=== PATIENT | male | born 1945 | race Caucasian/White ===

== ENCOUNTER 2017-08-07 03:01 | Inpatient (IN) | payer MEDICARE, MEDICAID ==
[~2017-08-07] VITALS: Ht 182.9 cm; Wt 96.7 kg
[2017-08-07 04:46] VITALS: BP 121/83; PULSE 94; RESP 22; TEMP 97.7; O2SAT 97
[2017-08-07] MEDS ORDERED: MAGNESIUM HYDROXIDE SUSP 30 ML CUP PO PRN (05:30)
[2017-08-07] MEDS ORDERED: ALUMINUM/MAGNESIUM/SIMETH 30 ML CUP PO PRN (05:30)
[2017-08-07] MEDS ORDERED: AMLO2.5T PO (09:16)
[2017-08-07] MEDS ORDERED: VENTAER INH (09:16)
[2017-08-07] MEDS ORDERED: TRAZ100T10 PO (09:16)
[2017-08-07] MEDS ORDERED: DEPA500T3 PO (09:16)
[2017-08-07] MEDS ORDERED: VENL75TA (09:16)
[2017-08-07] MEDS ORDERED: INVE6TAB3 PO (09:16)
[2017-08-07] MEDS: ACETAMINOPHEN 325 MG TAB PO PRN ×2 (12:15→20:17)
[2017-08-07] MEDS ORDERED: hydrOXYzine HCL 50 MG TAB PO PRN (13:45)
[2017-08-07] MEDS ORDERED: ALBUTEROL SULFATE 90 MCG/ACT HFA 8 GM INHALER INH PRN (13:45)
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
[2017-08-07] MEDS ORDERED: PILL SPLITTER OTHER PRN (14:45)
--- NOTE | 2017-08-07 16:33 | PD.CONS ---
HPI Service [facility] Hospitalists Consult Requested By Dr. Montiel Reason for Consult Medical management Primary Care Physician Unknown Diagnoses: (1) Hypertension History of Present Illness The patient is a 72-year-old male seen in inpatient psychiatry day room. Hospitalist consult requested for medical management. The patient states that he has "too much metal" in his blood. He reports that his blood is full of amalgam, cyanide, arsenic, lead. No other complaints at this time. Review of Systems ROS Limitations: Psychotic Constitutional: DENIES: Fever, Chills, Night Sweats Eyes: DENIES: Blurred vision, Vision loss Ears, nose, mouth, throat: DENIES: Hearing loss Respiratory: DENIES: Cough, Wheezing, Sputum production, Shortness of breath Cardiovascular: DENIES: Chest pain, Palpitations, Dyspnea on Exertion, Lower Extremity Edema Gastrointestinal: DENIES: Abdominal pain, Constipation, Diarrhea, Nausea, Vomiting Genitourinary: DENIES: Urinary frequency, Urinary incontinence, Urgency, Hematuria, Dysuria, Nocturia Musculoskeletal: DENIES: Joint pain, Muscle aches Integumentary: DENIES: Pruritus, Rash Hematologic/lymphatic: DENIES: Bruising Neurologic: DENIES: Headache Past Family Social History Allergies: Coded Allergies: No Known Allergies (Verified Allergy, Unknown, 08/07/17) Past Medical History Hypertension Past Surgical History Patient does not report any history of surgeries Reported Medications Medication llist from [facility]: Albuterol 18 GM Inh (Ventolin Hfa 18 GM Inh) 90 Mcg/Act Aer, 2 PUFF INH Q4-6H Y for SHORTNESS OF BREATH, #1 INHALER 0 Refills 08/07/17 Paliperidone ER (Invega) 6 Mg Tab, 6 MG PO HS for Schizophrenia, #30 TAB 0 Refills 08/07/17 Trazodone (Trazodone) 100 Mg Tablet, 100 MG PO HS for Control Depression, #30 TAB 0 Refills 08/07/17 Divalproex ER (Depakote ER) 500 Mg Madison, 500 MG PO HS for Control Seizures, # 30 TAB 0 Refills 08/07/17 Amlodipine (Amlodipine) 2.5 Mg Tab, 2.5 MG PO DAILY for Blood Pressure Management, #30 TAB 0 Refills 08/07/17 Venlafaxine (Effexor) 75 Mg Tab, 75 MG DAILY, #30 TAB 0 Refills 08/07/17 Family History Patient does not report any family history of medical problems. Social History Smokes 5-10 cigarettes/day. Denies alcohol and illicit drug use. Physical Exam Vital Signs Vital Signs Date Time Temp Pulse Resp B/P (MAP) Pulse Ox O2 Delivery O2 Flow Rate FiO2 08/07/17 04:46 97.7 94 22 121/83 (96) 97 Physical Exam GENERAL: Elderly male in no apparent distress. SKIN: No rashes, ecchymoses or lesions. Cool and dry. HEAD: Atraumatic. Normocephalic. No temporal or scalp tenderness. CARDIOVASCULAR: Regular rate and rhythm without murmurs, gallops, or rubs. RESPIRATORY: Clear to auscultation. Breath sounds equal bilaterally. No wheezes , rales, or rhonchi. GASTROINTESTINAL: Abdomen soft, non-tender, nondistended. No hepato-splenomegaly , or palpable masses. No guarding. MUSCULOSKELETAL: Extremities without clubbing, cyanosis, or edema. NEUROLOGICAL: Awake and alert. No focal deficits noted. Normal speech. PSYCH: Somewhat confused, delusional. Assessment and Plan Assessment and Plan 1. Paranoid schizophrenia, tardive dyskinesia: Management per psychiatry. 2. Hypertension: Continue amlodipine. 3. Tobacco abuse: Nicotine patch. Patient had multiple medications listed on his medication list from the outside hospital, but these are not active medications according to his [facility], which was contacted by the patient's nurse. Will continue medications based on the list from his [facility]. [facility] will sign off. Please reconsult if needed. Vignesh Russo MD Aug 07, 2017 16:33
[2017-08-07] MEDS: NICOTINE 7 MG/24 HR PATCH T-DERMAL SCH (17:00)
[2017-08-07 17:30] VITALS: BP 124/75; PULSE 65; RESP 16; TEMP 97.1; O2SAT 94
[2017-08-07] MEDS: traZODone HCL 100 MG TAB PO SCH (20:17)
[2017-08-07] MEDS: PALIPERIDONE ER 6 MG TAB PO SCH (20:17)
[2017-08-07] MEDS: DIVALPROEX SODIUM E.R. 500 MG TAB PO SCH (20:17)
[2017-08-07] MEDS ORDERED: diphenhydrAMINE HCL 50 MG CAP PO PRN (21:00)
[2017-08-08 06:17] VITALS: BP 137/83; PULSE 82; RESP 17; TEMP 97.6; O2SAT 95
[2017-08-08 08:28] LABS: BICARBONATE 31.5 MEQ/L (21.0-32.0); BLOOD UREA NITROGEN 13 MG/DL (7-18); CHLORIDE 107 MEQ/L (98-107); CHOLESTEROL 172 MG/DL (120-200); CREATININE 0.82 MG/DL (0.60-1.30); GLOMERULAR FILTRATION RATE 93 ML/MIN (>89); GLUCOSE,RANDOM 93 MG/DL (74-106); SODIUM (NA) 143 MEQ/L (136-145); TRIGLYCERIDES 163 MG/DL (42-150)
[2017-08-08 08:30] LABS: CHOLESTEROL/ HDL RATIO 5.04 RATIO; HDL CHOLESTEROL 34.1 MG/DL (40.0-60.0); LDL CHOLESTEROL 105 MG/DL (0-99)
[2017-08-08] MEDS ORDERED: LORazepam 2 MG/ML VIAL IM STA (08:55)
[2017-08-08] MEDS ORDERED: OLANZapine IM 10 MG VIAL IM STA (08:55)
[2017-08-08] MEDS ORDERED: diphenhydrAMINE HCL 50 MG/ML VIAL IM STA (08:55)
[2017-08-08] MEDS ORDERED: LORazepam 2 MG/ML VIAL ONE (08:57)
[2017-08-08] MEDS ORDERED: diphenhydrAMINE HCL 50 MG/ML VIAL ONE (08:57)
[2017-08-08] MEDS ORDERED: OLANZapine IM 10 MG VIAL IM ONE (08:57)
[2017-08-08] MEDS: REMOVE OLD PATCH T-DERMAL SCH (09:00)
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
[2017-08-08] MEDS: NICOTINE 7 MG/24 HR PATCH T-DERMAL SCH (10:46)
[2017-08-08] MEDS: amLODIPine BESYLATE 5 MG TAB PO SCH (10:46)
[2017-08-08] MEDS: VENLAFAXINE HCL XR 75 MG CAP PO SCH (10:46)
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
[2017-08-08 16:16] LABS: HEMOGLOBIN A1C 5.6 % (4.3-6.0)
[2017-08-08] MEDS: traZODone HCL 100 MG TAB PO SCH (20:16)
[2017-08-08] MEDS: ACETAMINOPHEN 325 MG TAB PO PRN (20:16)
[2017-08-08] MEDS: PALIPERIDONE ER 6 MG TAB PO SCH (20:16)
[2017-08-08] MEDS: DIVALPROEX SODIUM E.R. 500 MG TAB PO SCH (20:16)
[2017-08-09 05:53] VITALS: BP 112/74; PULSE 66; RESP 18; TEMP 99.1; O2SAT 95
[2017-08-09] MEDS: REMOVE OLD PATCH T-DERMAL SCH (09:00)
[2017-08-09] MEDS: NICOTINE 7 MG/24 HR PATCH T-DERMAL SCH (09:00)
[2017-08-09] MEDS: VENLAFAXINE HCL XR 75 MG CAP PO SCH (09:12)
[2017-08-09] MEDS: amLODIPine BESYLATE 5 MG TAB PO SCH (09:12)
--- NOTE | 2017-08-09 14:58 | PD.TTN ---
Patient Problems 1. Discharge planning 2. Medication compliance 3. Knowledge deficit 4. Lack of coping skills Progress Toward Goals Provider Present: Dr. Kevon Montiel Provider Input: 08/07/17 new today from weekend 08/09/17 moved to 2700 this week, overall no insight, needs med stabilization Psychiatric Counselors Present: Patty Mulligan LCSW Psych Therapist Input: 08/07/17 new today 08/09/17 Legal guardian called and wants him on Invega shot, he was taken off and it did cause issues , he is not willing to take it, he has an LONGTERM to go to once stable Group Spec/RT/OT/PITTMAN Present: ZAIN Bergman Group Spec/RT/OT/PITTMAN Input: 08/09/17 he does not attend any groups Patty Mulligan LCSW Aug 09, 2017 14:58
--- NOTE | 2017-08-09 14:58 | PD.TTN ---
Patient Problems 1. Discharge planning 2. Medication compliance 3. Knowledge deficit 4. Lack of coping skills Progress Toward Goals Provider Present: Dr. Kevon Montiel Provider Input: 08/07/17 new today from weekend 08/09/17 moved to 2700 this week, overall no insight, needs med stabilization Psychiatric Counselors Present: Patty Mulligan LCSW Psych Therapist Input: 08/07/17 new today 08/09/17 Legal guardian called and wants him on Invega shot, he was taken off and it did cause issues , he is not willing to take it, he has an [facility] to go to once stable Group Spec/RT/OT/PITTMAN Present: ZAIN Bergman Group Spec/RT/OT/PITTMAN Input: 08/09/17 attends select groups such as Patty Rangel LCSW Aug 09, 2017 14:58
--- NOTE | 2017-08-09 15:38 | HHI.PYPN ---
Subjective Remarks Patient seen in dayroom nurse Shayna, chart review, patient compliant medications , patient discussed with nurse. Patient overall calm no behavior problems on 0. Patient initially calm with me though when I attempted to discuss medications and the possible use of a invading the sustain injection started to ramp up and become more angry vehemently denying his need to take the medication hours willingness to take. Patient is scheduled for [employer] tomorrow. For now will increase at bedtime and vague a to 9 mg. We will also check a Depakote blood level over tomorrow morning Review of Systems Except as stated in HPI: all other systems reviewed are Neg Mental Status Examination Appearance: Disheveled Consciousness: Alert (mildly) Orientation: x4 Motor Activity: Other (patient mother tremors both upper extremities and buccal lingual) Speech: Other (mildly dysarthric) Language: Adequate Fund of Knowledge: Adequate (moderate) Attention and Concentration: Adequate (fair) Memory: Impaired Mood: Angry, Oppositional, Irritable, Other (euthymic to somewhat irritable) Affect: Other (good range and intensity) Thought Process & Associations: Loose associations, Linear Thought Content: Delusional, Other (somewhat disorganized) Hallucination Type: None (denies that times appears to be responding to internal stimuli) Delusion Type: Paranoid (mild) Suicidal Ideation: No Suicidal Plan: No Suicidal Intention: No Homicidal Ideation: No Homicidal Plan: No Homicidal Intention: No Insight: Poor Judgment: Poor Results Vitals/IOs Vital Signs Date Time Temp Pulse Resp B/P (MAP) Pulse Ox O2 Delivery O2 Flow Rate FiO2 08/09/17 05:53 99.1 66 18 112/74 (87) 95 Assessment & Plan Problem List: (1) Paranoid type schizophrenia, chronic state ICD Codes: F20.0 - Paranoid schizophrenia (2) Tardive dyskinesia ICD Codes: G24.01 - Drug induced subacute dyskinesia Assessment & Plan Estimated LOS: days patient remains quite psychotic paranoid delusional labile and irritable. She medication adjustments above. Patient scheduled for [employer] tomorrow Justification for Cont. Inpt. This time patient decompensated placed a lower level of care Discharge Planning To be determined Request HC Surrog/Guard Advoc?: Yes Mohit Montiel MD Aug 09, 2017 15:38
[2017-08-09 16:11] VITALS: BP 107/74; PULSE 57; RESP 18; TEMP 96; O2SAT 97
[2017-08-09] MEDS ORDERED: PALIPERIDONE ER 9 MG TAB PO SCH (21:00)
[2017-08-09] MEDS: DIVALPROEX SODIUM E.R. 500 MG TAB PO SCH (21:03)
[2017-08-09] MEDS: PALIPERIDONE ER 3 MG TAB PO SCH (21:03)
[2017-08-09] MEDS: traZODone HCL 100 MG TAB PO SCH (21:03)
[2017-08-10 06:32] VITALS: BP 94/53; PULSE 66; RESP 16; TEMP 98.5; O2SAT 93
[2017-08-10] MEDS: REMOVE OLD PATCH T-DERMAL SCH (09:00)
[2017-08-10] MEDS: amLODIPine BESYLATE 5 MG TAB PO SCH (09:09)
[2017-08-10] MEDS: NICOTINE 7 MG/24 HR PATCH T-DERMAL SCH (09:09)
[2017-08-10] MEDS: VENLAFAXINE HCL XR 75 MG CAP PO SCH (09:09)
[2017-08-10] MEDS: ACETAMINOPHEN 325 MG TAB PO PRN ×2 (15:10→20:41)
--- NOTE | 2017-08-10 17:10 | HHI.PYPN ---
Subjective Remarks Patient seen in [place] [address], was retained by Litigation Assistant Luzma guardian advocate was appointed. Patient continued with his delusions psychosis denial of illness or need for any "injections". Patient epical level drawn this a.m. was 37 on 500 mg at bedtime. We'll increase that to 1000 mg Depakote at at bedtime check a blood level in 3 days Review of Systems Except as stated in HPI: all other systems reviewed are Neg Mental Status Examination Appearance: Disheveled Consciousness: Alert (mildly) Orientation: x4 Motor Activity: Other (patient mother tremors both upper extremities and buccal lingual) Speech: Other (mildly dysarthric) Language: Adequate Fund of Knowledge: Adequate (moderate) Attention and Concentration: Adequate (fair) Memory: Impaired Mood: Angry, Oppositional, Irritable, Other (euthymic to somewhat irritable) Affect: Other (good range and intensity) Thought Process & Associations: Loose associations, Linear Thought Content: Delusional, Other (somewhat disorganized) Hallucination Type: None (denies that times appears to be responding to internal stimuli) Delusion Type: Paranoid (mild) Suicidal Ideation: No Suicidal Plan: No Suicidal Intention: No Homicidal Ideation: No Homicidal Plan: No Homicidal Intention: No Insight: Poor Judgment: Poor Results Labs Test 08/10/17 07:55 Valproic Acid (Depakene) Level 37 MCG/ML Vitals/IOs Vital Signs Date Time Temp Pulse Resp B/P (MAP) Pulse Ox O2 Delivery O2 Flow Rate FiO2 08/10/17 06:32 98.5 66 16 94/53 (63) 93 Assessment & Plan Problem List: (1) Paranoid type schizophrenia, chronic state ICD Codes: F20.0 - Paranoid schizophrenia (2) Tardive dyskinesia ICD Codes: G24.01 - Drug induced subacute dyskinesia Assessment & Plan Estimated LOS: days patient continues psychotic delusional and paranoid, was retained by [place] [facility] wax pattern coater, she medication adjustment above Justification for Cont. Inpt. At this time patient decompensated placed on the lower level of care Discharge Planning Possible return to skilled nursing Request HC Surrog/Guard Advoc?: Yes Mohit Montiel MD Aug 10, 2017 17:10
[2017-08-10 18:06] VITALS: BP 118/73; PULSE 72; RESP 16; TEMP 97.6; O2SAT 95
[2017-08-10] MEDS: DIVALPROEX SODIUM E.R. 500 MG TAB PO SCH (20:40)
[2017-08-10] MEDS: PALIPERIDONE ER 3 MG TAB PO SCH (20:40)
[2017-08-10] MEDS: traZODone HCL 100 MG TAB PO SCH (20:41)
[2017-08-11 05:54] VITALS: BP 119/76; PULSE 80; RESP 18; TEMP 97.6; O2SAT 96
[2017-08-11] MEDS: NICOTINE 7 MG/24 HR PATCH T-DERMAL SCH (08:58)
[2017-08-11] MEDS: REMOVE OLD PATCH T-DERMAL SCH (08:59)
[2017-08-11] MEDS: VENLAFAXINE HCL XR 75 MG CAP PO SCH (08:59)
[2017-08-11] MEDS: amLODIPine BESYLATE 5 MG TAB PO SCH (08:59)
--- NOTE | 2017-08-11 14:40 | HHI.PYPN ---
Subjective Remarks Reviewed electronic medical record and discussed case with staff. Follow-up was performed in the day room. Patient found sitting in chair. Reports that his mood is good and his affect is euthymic.States that he slept well and his appetite has been good. He has been compliant with his medications. Tremors noted in his hands at rest. Mental Status Examination Appearance: Disheveled Consciousness: Alert (mildly) Orientation: x4 Motor Activity: Other (patient mother tremors both upper extremities and buccal lingual) Speech: Other (mildly dysarthric) Language: Adequate Fund of Knowledge: Adequate (moderate) Attention and Concentration: Adequate (fair) Memory: Impaired Mood: Appropriate, Good Affect: Appropriate, Euthymic, Other (good range and intensity) Thought Process & Associations: Loose associations, Linear Thought Content: Delusional, Other (somewhat disorganized) Hallucination Type: None (denies that times appears to be responding to internal stimuli) Delusion Type: Paranoid (mild) Suicidal Ideation: No Suicidal Plan: No Suicidal Intention: No Homicidal Ideation: No Homicidal Plan: No Homicidal Intention: No Insight: Poor Judgment: Poor Results Vitals/IOs Vital Signs Date Time Temp Pulse Resp B/P (MAP) Pulse Ox O2 Delivery O2 Flow Rate FiO2 08/11/17 05:54 97.6 80 18 119/76 (90) 96 Intake and Output 08/11/17 08/11/17 08/12/17 08:00 16:00 00:00 Intake Total 250 ml Balance 250 ml Assessment & Plan Problem List: (1) Paranoid type schizophrenia, chronic state ICD Codes: F20.0 - Paranoid schizophrenia (2) Tardive dyskinesia ICD Codes: G24.01 - Drug induced subacute dyskinesia Assessment & Plan Estimated LOS: Patient to remain under the care of Dr Montiel. Will continue with present treatment plan. Justification for Cont. Inpt. Moving this patient to a lower level of care would result in decompensation. Request HC Surrog/Guard Advoc?: Yes Christiane Garvey Aug 11, 2017 14:40
[2017-08-11 18:00] VITALS: BP 113/61; PULSE 69; RESP 16; TEMP 98.5; O2SAT 94
[2017-08-11] MEDS: PALIPERIDONE ER 3 MG TAB PO SCH (20:40)
[2017-08-11] MEDS: traZODone HCL 100 MG TAB PO SCH (20:40)
[2017-08-11] MEDS: DIVALPROEX SODIUM E.R. 500 MG TAB PO SCH (20:40)
[2017-08-12 06:32] VITALS: BP 124/82; PULSE 74; RESP 17; TEMP 98; O2SAT 94
[2017-08-12] MEDS: amLODIPine BESYLATE 5 MG TAB PO SCH (08:24)
[2017-08-12] MEDS: VENLAFAXINE HCL XR 75 MG CAP PO SCH (08:24)
[2017-08-12] MEDS: NICOTINE 7 MG/24 HR PATCH T-DERMAL SCH (08:25)
[2017-08-12] MEDS: REMOVE OLD PATCH T-DERMAL SCH (08:25)
--- NOTE | 2017-08-12 16:00 | HHI.PYPN ---
Subjective Remarks Pt seen and discussed with staff. He is mildly delusional but cooperative with care. He has been isolative on the unit, but did do hygiene ADLs today. He denies medication side effects. No SI/HI Mental Status Examination Appearance: Disheveled Consciousness: Alert (mildly) Orientation: x4 Motor Activity: Other (patient mother tremors both upper extremities and buccal lingual) Speech: Other (mildly dysarthric) Language: Adequate Fund of Knowledge: Adequate (moderate) Attention and Concentration: Adequate (fair) Memory: Impaired Mood: Appropriate, Good Affect: Flat Thought Process & Associations: Loose associations, Linear Thought Content: Delusional, Other (somewhat disorganized) Hallucination Type: None (denies that times appears to be responding to internal stimuli) Delusion Type: Paranoid (mild) Suicidal Ideation: No Suicidal Plan: No Suicidal Intention: No Homicidal Ideation: No Homicidal Plan: No Homicidal Intention: No Insight: Poor Judgment: Poor Results Vitals/IOs Vital Signs Date Time Temp Pulse Resp B/P (MAP) Pulse Ox O2 Delivery O2 Flow Rate FiO2 08/12/17 06:32 98.0 74 17 124/82 (96) 94 Assessment & Plan Problem List: (1) Paranoid type schizophrenia, chronic state ICD Codes: F20.0 - Paranoid schizophrenia (2) Tardive dyskinesia ICD Codes: G24.01 - Drug induced subacute dyskinesia Assessment & Plan Continue current tx plan. Estimated LOS: days Justification for Cont. Inpt. impairments in reality testing Request HC Surrog/Guard Advoc?: Yes Tonia Hernández MD Aug 12, 2017 16:00
[2017-08-12 18:05] VITALS: BP 125/68; PULSE 70; RESP 18; TEMP 97.4; O2SAT 95
[2017-08-12] MEDS: PALIPERIDONE ER 3 MG TAB PO SCH (20:44)
[2017-08-12] MEDS: traZODone HCL 100 MG TAB PO SCH (20:44)
[2017-08-12] MEDS: DIVALPROEX SODIUM E.R. 500 MG TAB PO SCH (20:44)
[2017-08-13 05:52] VITALS: BP 128/65; PULSE 49; RESP 17; TEMP 97.2; O2SAT 95
[2017-08-13] MEDS: REMOVE OLD PATCH T-DERMAL SCH (09:00)
[2017-08-13] MEDS: NICOTINE 7 MG/24 HR PATCH T-DERMAL SCH (09:23)
[2017-08-13] MEDS: VENLAFAXINE HCL XR 75 MG CAP PO SCH (09:23)
[2017-08-13] MEDS: amLODIPine BESYLATE 5 MG TAB PO SCH (09:23)
[2017-08-13 15:32] VITALS: BP 117/72; PULSE 68; RESP 18; TEMP 97; O2SAT 96
--- NOTE | 2017-08-13 15:41 | HHI.PYPN ---
Subjective Remarks Pt seen and discussed with staff. He has been compliant with medications. He has been calm and cooperative. No behavioral problems. No SI/HI. He complains of itchy L foot. L dorsal aspect of foot is noted to have a playing card deck size area of erythema and mild tissue swelling with excoriations. Pt reports that he was gardening and "something must have got me." He denies pain and there is no TTP. Vital signs within normal limits Mental Status Examination Appearance: Disheveled Consciousness: Alert (mildly) Orientation: x4 Motor Activity: Other (patient mother tremors both upper extremities and buccal lingual) Speech: Other (mildly dysarthric) Language: Adequate Fund of Knowledge: Adequate (moderate) Attention and Concentration: Adequate (fair) Memory: Impaired Mood: Appropriate, Good Affect: Flat Thought Process & Associations: Loose associations, Linear Thought Content: Delusional, Other (somewhat disorganized) Hallucination Type: None (denies that times appears to be responding to internal stimuli) Delusion Type: Paranoid (mild) Suicidal Ideation: No Suicidal Plan: No Suicidal Intention: No Homicidal Ideation: No Homicidal Plan: No Homicidal Intention: No Insight: Poor Judgment: Poor Results Labs Test 08/13/17 10:38 Valproic Acid (Depakene) Level 65 MCG/ML Vitals/IOs Vital Signs Date Time Temp Pulse Resp B/P (MAP) Pulse Ox O2 Delivery O2 Flow Rate FiO2 08/13/17 15:32 97.0 68 18 117/72 (87) 96 Assessment & Plan Problem List: (1) Paranoid type schizophrenia, chronic state ICD Codes: F20.0 - Paranoid schizophrenia (2) Tardive dyskinesia ICD Codes: G24.01 - Drug induced subacute dyskinesia Assessment & Plan Will continue current tx plan. Will consult medicine for possible cellulitis. CBC and BMP Estimated LOS: days Justification for Cont. Inpt. risk of decompensation Request HC Surrog/Guard Advoc?: Yes Tonia Hernández MD Aug 13, 2017 15:41
[2017-08-13] MEDS: DIVALPROEX SODIUM E.R. 500 MG TAB PO SCH (20:14)
[2017-08-13] MEDS: traZODone HCL 100 MG TAB PO SCH (20:14)
[2017-08-13] MEDS: PALIPERIDONE ER 3 MG TAB PO SCH (20:14)
[2017-08-13 20:39] VITALS: BP 134/74; PULSE 61; RESP 18; TEMP 97.1
[2017-08-14 05:37] VITALS: BP 105/50; PULSE 63; RESP 18; TEMP 97.4
[2017-08-14] MEDS: amLODIPine BESYLATE 5 MG TAB PO SCH (08:55)
[2017-08-14] MEDS: NICOTINE 7 MG/24 HR PATCH T-DERMAL SCH (08:55)
[2017-08-14] MEDS: VENLAFAXINE HCL XR 75 MG CAP PO SCH (08:55)
[2017-08-14] MEDS: REMOVE OLD PATCH T-DERMAL SCH (09:00)
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
--- NOTE | 2017-08-14 12:20 | HHI.PR ---
Subjective Remarks very pleasant reports he is worried about his leg otherwise doing well hanging out in dayroom in 2700s reconsulted for right dorsum skin lesions has been there for more than 1 yr per patient usually takes hydrocortisone cream for itching at [facility] and ususally resolves with it Objective Vital Signs Date Time Temp Pulse Resp B/P (MAP) Pulse Ox O2 Delivery O2 Flow Rate FiO2 08/14/17 05:37 97.4 63 18 105/50 (68) 08/13/17 20:39 97.1 61 18 134/74 (94) 08/13/17 15:32 97.0 68 18 117/72 (87) 96 Objective Remarks awake, alert, not in distress, pleasant, has resting tremors of both upper and lower extremities, head- consistent with tardive dyskinesia skin: right dorsum with dry scaly skin, eczematous heart rate is regular, no murmur appreciated lungs are clear, abdomen soft and non tender no rebound, no guarding no calf asymmetry or edema, non tender A/P Assessment and Plan Impression: Right dorsum foot skin lesion- consistent with eczema on exam hx of htn tardive dyskinesia Plan: exam reveals eczematous lesions no evidence of infection start hydrocortisone cream will sign off Discharge Planning per psychiatry Noah Hutchins MD Aug 14, 2017 12:20
[2017-08-14] MEDS: HYDROCORTISONE 1% CREAM 30 GM TOPICAL SCH ×2 (14:00→22:49)
[2017-08-14 15:33] VITALS: BP_SYST 62; PULSE 64; RESP 18; TEMP 98.6; O2SAT 97
--- NOTE | 2017-08-14 16:31 | HHI.PYPN ---
Subjective Remarks Patient seen in activities room with nurse Zoila, chart review, patient compliant medication. Patient discussed with nurse. Patient overall, pleasant me today the chronic motor will miss continue without change. Now he states he will noted [facility] of [facility]. Otherwise she does have his house on [address]. Patient does denies suicidality homicidality voices or visions. For now continue treatment no change Review of Systems Except as stated in HPI: all other systems reviewed are Neg Mental Status Examination Appearance: Disheveled Consciousness: Alert (mildly) Orientation: x4 Motor Activity: Other (patient mother tremors both upper extremities and buccal lingual) Speech: Other (mildly dysarthric) Language: Adequate Fund of Knowledge: Adequate (moderate) Attention and Concentration: Adequate (fair) Memory: Impaired Mood: Appropriate, Good Affect: Flat Thought Process & Associations: Loose associations, Linear Thought Content: Delusional, Other (somewhat disorganized) Hallucination Type: None (denies that times appears to be responding to internal stimuli) Delusion Type: Paranoid (mild) Suicidal Ideation: No Suicidal Plan: No Suicidal Intention: No Homicidal Ideation: No Homicidal Plan: No Homicidal Intention: No Insight: Poor Judgment: Poor Results Vitals/IOs Vital Signs Date Time Temp Pulse Resp B/P (MAP) Pulse Ox O2 Delivery O2 Flow Rate FiO2 08/14/17 15:33 98.6 64 18 62/ 97 Assessment & Plan Problem List: (1) Paranoid type schizophrenia, chronic state ICD Codes: F20.0 - Paranoid schizophrenia (2) Tardive dyskinesia ICD Codes: G24.01 - Drug induced subacute dyskinesia Assessment & Plan Estimated LOS: days patient has paranoia and psychosis are softening, he is, pleasant with me as long as I do not process I for the in vague assisting Justification for Cont. Inpt. At this time patient will decompensate in place to the lower level of care Discharge Planning Perhaps need to find a new [place] [facility] [place] facility Request HC Surrog/Guard Advoc?: Yes Mohit Montiel MD Aug 14, 2017 16:31
[2017-08-14 18:22] LABS: AUTOMATED NEUTROPHIL # 4.4 TH/MM3 (1.8-7.7); BASOPHIL % 0.5 % (0.0-2.0); EOSINOPHIL # 0.2 TH/MM3 (0-0.4); EOSINOPHIL % 2.7 % (0.0-4.0); HEMATOCRIT 39.8 % (39.0-51.0); HEMOGLOBIN 13.8 GM/DL (13.0-17.0); LYMPH % 23.2 % (9.0-44.0); LYMPHOCYTE # 1.6 TH/MM3 (1.0-4.8); MEAN CORPUSCULAR HEMOGLOBIN 30.8 PG (27.0-34.0); MEAN CORPUSCULAR HGB CONC 34.6 % (32.0-36.0); MONO % 10.3 % (0.0-8.0); MONOCYTE # 0.7 TH/MM3 (0-0.9); NEUT % 63.3 % (16.0-70.0); PLATELET COUNT 202 TH/MM3 (150-450); RED BLOOD COUNT 4.47 MIL/MM3 (4.50-5.90); RED CELL DISTRIBUTION WIDTH 12.7 % (11.6-17.2)
[2017-08-14 18:40] LABS: BICARBONATE 30.5 MEQ/L (21.0-32.0); CALCIUM 8.9 MG/DL (8.5-10.1); CREATININE 1.18 MG/DL (0.60-1.30)
[2017-08-14] MEDS: traZODone HCL 100 MG TAB PO SCH (20:37)
[2017-08-14] MEDS: PALIPERIDONE ER 3 MG TAB PO SCH (20:37)
[2017-08-14] MEDS: DIVALPROEX SODIUM E.R. 500 MG TAB PO SCH (20:38)
[2017-08-15] MEDS: HYDROCORTISONE 1% CREAM 30 GM TOPICAL SCH ×3 (06:00→20:56)
[2017-08-15 06:18] VITALS: BP 95/58; PULSE 81; RESP 18; TEMP 99; O2SAT 95
[2017-08-15] MEDS: amLODIPine BESYLATE 5 MG TAB PO SCH ×2 (09:00→09:05)
[2017-08-15] MEDS: REMOVE OLD PATCH T-DERMAL SCH (09:00)
[2017-08-15] MEDS: VENLAFAXINE HCL XR 75 MG CAP PO SCH (09:05)
[2017-08-15] MEDS: NICOTINE 7 MG/24 HR PATCH T-DERMAL SCH (09:06)
--- NOTE | 2017-08-15 10:58 | PD.TTN ---
Patient Problems 1. Discharge planning 2. Medication compliance 3. Knowledge deficit 4. Lack of coping skills Progress Toward Goals Provider Present: Dr. Kevon Montiel, Dr. Miguelito Antonio Provider Input: 08/07/17 new today from weekend 08/09/17 moved to 2700 this week, overall no insight, needs med stabilization 08/14/17 Will meet with new pt and discuss treatment plan 08/15/2017: To remain for further stabilization. Nurse(s) Input: N/A Psychiatric Counselors Present: Patty Mulligan [facility], Heidy Chand, [facility], Emma Lozoya, [facility], Tanna Luevano, [facility] Psych Therapist Input: 08/07/17 new today 08/09/17 Legal guardian called and wants him on Invega shot, he was taken off and it did cause issues , he is not willing to take it, he has an [facility] to go to once stable Group Spec/RT/OT/PITTMAN Present: ZAIN Bergman, Akhil Correia, OT, ZAIN Andrew Group Spec/RT/OT/PITTMAN Input: 08/09/17: attends select groups such as coffee 08/14/17: Attends select groups such as Communion and Exercise 08/16/2017: Pt doesn't attend the group activitities Occupational Therapist Input: Pt doesn't attend the group activities. Isolates to self. Discharge Plan Has placement Crys Ken Aug 15, 2017 10:58
--- NOTE | 2017-08-15 14:20 | HHI.PYPN ---
Subjective Remarks Patient seen in [place] with nurse Tyesha, chart review, patient compliant medications, patient discussed with nurse. Depakote blood level drawn on 08/13 on 1000 mg daily of Depakote is 65. Patient continues calm with me is chronic motor movements continue no change. In now is willing to go back to his previous [facility] for their reserving a bed. Patient continues to do well overnight consider discharge tomorrow to that facility Review of Systems Except as stated in HPI: all other systems reviewed are Neg Mental Status Examination Appearance: Disheveled Consciousness: Alert (mildly) Orientation: x4 Motor Activity: Other (patient mother tremors both upper extremities and buccal lingual) Speech: Other (mildly dysarthric) Language: Adequate Fund of Knowledge: Adequate (moderate) Attention and Concentration: Adequate (fair) Memory: Impaired Mood: Appropriate, Good Affect: Flat Thought Process & Associations: Loose associations, Linear Thought Content: Delusional, Other (somewhat disorganized) Hallucination Type: None (denies that times appears to be responding to internal stimuli) Delusion Type: Paranoid (mild) Suicidal Ideation: No Suicidal Plan: No Suicidal Intention: No Homicidal Ideation: No Homicidal Plan: No Homicidal Intention: No Insight: Poor Judgment: Poor Results Labs Test 08/14/17 15:55 White Blood Count 7.0 TH/MM3 Red Blood Count 4.47 MIL/MM3 Hemoglobin 13.8 GM/DL Hematocrit 39.8 % Mean Corpuscular Volume 89.0 FL Mean Corpuscular Hemoglobin 30.8 PG Mean Corpuscular Hemoglobin Concent 34.6 % Red Cell Distribution Width 12.7 % Platelet Count 202 TH/MM3 Mean Platelet Volume 9.0 FL Neutrophils (%) (Auto) 63.3 % Lymphocytes (%) (Auto) 23.2 % Monocytes (%) (Auto) 10.3 % Eosinophils (%) (Auto) 2.7 % Basophils (%) (Auto) 0.5 % Neutrophils # (Auto) 4.4 TH/MM3 Lymphocytes # (Auto) 1.6 TH/MM3 Monocytes # (Auto) 0.7 TH/MM3 Eosinophils # (Auto) 0.2 TH/MM3 Basophils # (Auto) 0.0 TH/MM3 CBC Comment DIFF FINAL Differential Comment Blood Urea Nitrogen 19 MG/DL Creatinine 1.18 MG/DL Random Glucose 131 MG/DL Calcium Level 8.9 MG/DL Sodium Level 139 MEQ/L Potassium Level 4.3 MEQ/L Chloride Level 102 MEQ/L Carbon Dioxide Level 30.5 MEQ/L Anion Gap 7 MEQ/L Estimat Glomerular Filtration Rate 61 ML/MIN Vitals/IOs Vital Signs Date Time Temp Pulse Resp B/P (MAP) Pulse Ox O2 Delivery O2 Flow Rate FiO2 08/15/17 06:18 99.0 81 18 95/58 (70) 95 Assessment & Plan Problem List: (1) Paranoid type schizophrenia, chronic state ICD Codes: F20.0 - Paranoid schizophrenia (2) Tardive dyskinesia ICD Codes: G24.01 - Drug induced subacute dyskinesia Assessment & Plan Estimated LOS: days patient overall calm and cooperative with me, motor movements have not changed, Depakote level on 08/13 is 65 we'll continue Depakote no change. Patient continues to stabilize consider discharge within 24 -48 hours Justification for Cont. Inpt. At this time patient will decompensate not place an appropriate level of care Discharge Planning Possible discharge tomorrow to [facility] [place] [facility] Request HC Surrog/Guard Advoc?: Yes Mohit Montiel MD Aug 15, 2017 14:20
[2017-08-15 18:25] VITALS: BP 107/78; PULSE 77; RESP 18; TEMP 96.8; O2SAT 96
[2017-08-15] MEDS: traZODone HCL 100 MG TAB PO SCH (20:32)
[2017-08-15] MEDS: DIVALPROEX SODIUM E.R. 500 MG TAB PO SCH (20:32)
[2017-08-15] MEDS: PALIPERIDONE ER 3 MG TAB PO SCH (20:57)
[2017-08-16 06:07] VITALS: BP 119/63; PULSE 73; RESP 18; TEMP 97.8; O2SAT 97
[2017-08-16] MEDS: HYDROCORTISONE 1% CREAM 30 GM TOPICAL SCH ×2 (06:32→14:00)
[2017-08-16] MEDS: amLODIPine BESYLATE 5 MG TAB PO SCH (08:31)
[2017-08-16] MEDS: REMOVE OLD PATCH T-DERMAL SCH (08:31)
[2017-08-16] MEDS: VENLAFAXINE HCL XR 75 MG CAP PO SCH (08:31)
[2017-08-16] MEDS: NICOTINE 7 MG/24 HR PATCH T-DERMAL SCH (08:32)
[2017-08-16] MEDS ORDERED: DEPA500T3 PO (13:09)
[2017-08-16] MEDS ORDERED: INVE3TAB2 PO (13:09)
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
== END 2017-08-16 15:05 | DRG 885 ==
LOC: H250 04:23 → H270 08-08 09:00
PROVIDERS: ADMIT Psychiatry & Neurology Psychiatry; ATTEND Psychiatry & Neurology Psychiatry
DX: F20.0 Paranoid schizophrenia (principal); Z91.14 Patient's other noncompliance with medication regimen; I10 Essential (primary) hypertension; G24.01 Drug induced subacute dyskinesia; F17.210 Nicotine dependence, cigarettes, uncomplicated; L30.9 Dermatitis, unspecified
CPT/HCPCS: 80048; 80061; 80164; 83036; 85025; J1200; J2060